=== PATIENT | female | born 1940 | race Caucasian/White ===

== ENCOUNTER 2018-12-23 00:09 | Day surgery (SDC) | payer MEDICARE, BC ==
[~2018-12-23 00:09] MED LIST: CEPH500 PO; SACC250C PO
[2018-12-23] MEDS ORDERED: TUMERIC PO (14:30)
[2018-12-23] MEDS ORDERED: Hair, Skin & N1 EACH PO (14:30)
[2018-12-23] MEDS ORDERED: OMEG1CAP30 PO (14:31)
[2018-12-23] MEDS ORDERED: LIDO700A20 TOP (14:31)
[2018-12-23] MEDS ORDERED: Advil Pm Liqui1 EACH PO (14:32)
[2018-12-23] MEDS ORDERED: LORA.5 PO (14:33)
== END 2018-12-23 15:29 | disposition home or self-care (01) ==
LOC: ATC 00:09
DX: D50.8 Other iron deficiency anemias (principal); Z87.891 Personal history of nicotine dependence
CPT/HCPCS: 36415; 36430; 86850; 86900; 86901; 86923; J7050; P9016

== ENCOUNTER → 2021-02-20 | Outpatient (CLI) | payer MEDICARE, BC ==
[~2021-02-20] MED LIST changes: +Advil Pm Liqui1 EACH PO; +Hair, Skin & N1 EACH PO; +LIDO700A20 TOP; +LORA.5 PO; +OMEG1CAP30 PO; +TUMERIC PO
[2021-02-20 19:10] LABS: Hematocrit 37.1 % (33.0-51.0); Hemoglobin 11.1 g/dL (11.5-16.0); Mean Corpuscular HGB 30.2 pg (26.0-34.0); Mean Corpuscular HGB Conc 29.9 g/dL (31.5-36.5); Mean Corpuscular Volume 101 fL (80-100); NRBC ABSOLUTE 0.03 K/mm3 (0.00-0.02); NRBC Auto 0.4 /100 WBC (0.0-0.2); Platelet Count 297 K/mm3 (150-400); RDW Coefficient Variation 18.6 % (11.7-14.2); RDW Standard Deviation 68.3 fL (35.1-46.3); Red Blood Cell Count 3.68 M/mm3 (3.80-5.20); White Blood Cell Count 7.71 K/mm3 (4.00-11.30)
[2021-02-20 19:50] LABS: BAND PERCENT MAN 4 % (0-8); BASOPHILS ABSOLUTE MAN 0.15 K/mm3 (0.00-0.23); BASOPHILS PERCENT MAN 2 % (0-2); EOSINOPHILS ABSOLUTE MAN 0.38 K/mm3 (0.00-0.68); EOSINOPHILS PERCENT MAN 5 % (0-6); LYMPHOCYTES ABSOLUTE MAN 2.08 K/mm3 (0.84-5.20); LYMPHOCYTES PERCENT MAN 27 % (21-46); MONOCYTES ABSOLUTE MAN 0.15 K/mm3 (0.16-1.47); MONOCYTES PERCENT MAN 2 % (4-13); NEUTROPHILS ABSOLUTE MAN 4.93 K/mm3 (1.96-9.15); SEG NEUTROPHILS PERCENT MAN 60 % (41-73); TOTAL CELLS COUNTED 100
[2021-02-20 20:13] LABS: Alanine Aminotransfer (ALT/SGP 36 U/L (12-78); Albumin, Blood 3.2 g/dL (3.4-5.0); Alk Phos 110 U/L (50-136); Anion Gap 5 mmol/L (6-16); Aspartate Aminotrans (AST/SGOT 36 U/L (12-37); Bilirubin, Total 0.8 mg/dL (0.1-1.0); Blood Urea Nitrogen 17 mg/dL (8-24); Bun/Creatinine Ratio 21.2 (12.0-20.0); CO2, Blood 28 mmol/L (21-32); Calcium, Blood 8.7 mg/dL (8.5-10.1); Chloride, Blood 109 mmol/L (98-108); Globulin, Blood 3.1 g/dL (2.2-4.0); Glomerular Filtration Rate >60 (60-); Glucose, Blood 81 mg/dL (70-99); Phosphorus, Blood 3.6 mg/dL (2.5-4.9); Potassium, Blood 4.4 mmol/L (3.5-5.5); Sodium, Blood 142 mmol/L (136-145); Total Protein, Blood 6.3 g/dL (6.4-8.2)
== END | disposition home or self-care (01) ==
LOC: LAB SHORT 14:10 → LAB 14:10
PROVIDERS: Internal Medicine Hematology & Oncology
DX: D46.9 Myelodysplastic syndrome, unspecified (principal); D63.8 Anemia in other chronic diseases classified elsewhere
CPT/HCPCS: 80053; 84100; 85025

== ENCOUNTER 2022-12-27 09:36 | Inpatient (IN) | payer MEDICARE, BC ==
[~2022-12-27] VITALS: Ht 165.1 cm; Wt 82.9 kg
[2022-12-27 10:19] LABS: Hematocrit 30.4 % (33.0-51.0); Hemoglobin 9.5 g/dL (11.5-16.0); Mean Corpuscular HGB 30.3 pg (26.0-34.0); Mean Corpuscular HGB Conc 31.3 g/dL (31.5-36.5); Mean Corpuscular Volume 97 fL (80-100); Mean Platelet Volume 10.2 fL (9.1-12.4); NRBC ABSOLUTE 0.17 K/mm3 (0.00-0.02); NRBC Auto 1.1 /100 WBC (0.0-0.2); Platelet Count 340 K/mm3 (150-400); RDW Coefficient Variation 20.4 % (11.7-14.2); Red Blood Cell Count 3.14 M/mm3 (3.80-5.20)
[2022-12-27 10:32] LABS: Base Excess Venous -3.7 mmol/L; Bicarbonate Venous 21.7 mmol/L (24.0-30.0); PCO2 Venous 36.2 mmHg (38-42); pH Blood Venous 7.38 (7.34-7.37)
[2022-12-27 10:38] LABS: BAND PERCENT MAN 5 % (0-8); BASOPHILS PERCENT MAN 0 % (0-2); EOSINOPHILS PERCENT MAN 2 % (0-6); LYMPHOCYTES % ATYPICAL MANUAL 1 % (0-0); LYMPHOCYTES PERCENT MAN 12 % (21-46); METAMYELOCYTE ABSOLUTE MAN 0.15 K/mm3 (0.00-0.00); METAMYELOCYTE PERCENT MAN 1 % (0-0); MONOCYTES PERCENT MAN 2 % (4-13); NEUTROPHILS ABSOLUTE MAN 12.62 K/mm3 (1.96-9.15); SEG NEUTROPHILS PERCENT MAN 77 % (41-73); TOTAL CELLS COUNTED 100
[2022-12-27 10:43] LABS: Albumin, Blood 2.9 g/dL (3.4-5.0); Albumin/Globulin Ratio 0.9 (0.8-1.8); Bilirubin, Total 0.6 mg/dL (0.1-1.0); Bun/Creatinine Ratio 42.7 (12.0-20.0); Calcium, Blood 8.4 mg/dL (8.5-10.1); Creatinine, Blood 0.75 mg/dL (0.40-1.00); Globulin, Blood 3.2 g/dL (2.2-4.0); Potassium, Blood 3.1 mmol/L (3.5-5.5); Thyroid Stimulating Hormone 1.75 uIU/mL (0.360-4.800); Total Protein, Blood 6.1 g/dL (6.4-8.2)
[2022-12-27 10:52] LABS: Source, Urine Clean Catch
[2022-12-27 10:56] LABS: Bilirubin, Urine Neg (Neg); Blood, Urine Neg (Neg); Glucose Qualitative, Urine Neg (Neg); Ketones, Urine Neg (Neg); Leukocyte Esterase, Urine 3+ (Neg); Nitrite, Urine Pos (Neg); Protein, Urine 2+ (Neg); Specific Gravity, Urine 1.025 (1.003-1.022); Urobilinogen, Urine NORM (Normal)
[2022-12-27 11:09] LABS: Influenza A, PCR NEGATIVE (NEGATIVE); Influenza B, PCR NEGATIVE (NEGATIVE); Resp Syncytial Virus, PCR NEGATIVE (NEGATIVE)
[2022-12-27 11:12] LABS: Appearance, Urine Hazy (Clear); Color, Urine Yellow (P-Yellow)
[2022-12-27 11:14] LABS: Bacteria Many /hpf; Red Blood Cells, Urine 0-2 /hpf (0-2); Squamous Epithelial Cells Mod /hpf (Few)
[2022-12-27 11:59] LABS: SARS-Cov-2 (COVID-19) PCR, MMC POSITIVE (NEGATIVE)
[2022-12-27 16:19] VITALS: BP 151/73
--- NOTE | 2022-12-27 19:32 | NUR ---
SHIFT SUMMARY: NO ACUTE EVENTS SINCE ADMISSION AT 1500. NO EVENTS ON TELEMETRY, AFIB 85; PT STATES THAT AFIB IS NEW FOR HER. ON O2 @ 2 L/MIN NC WITH CONT OXIMETRY, O2 SATS 94-96% BUT DESATS TO MID 80'S WITH ACTIVITY AND IS BAUM. GETTING UP BR WITH ASSISTANCE D/T LINES, CORDS. POTASSIUM REPLACED. DENIES N/V, HAS IBS BUT NO DIARRHEA TODAY. WANTS TO GO HOME BRANDEN BECAUSE SHE HAS PETS AT HOME.
[2022-12-27] MEDS ORDERED: FERROUS GLUCON324 M2 PO (19:47)
[2022-12-27] MEDS ORDERED: IBUP400 PO (19:48)
[2022-12-27 22:19] VITALS: BP 146/87
[2022-12-28 03:59] VITALS: BP 146/80
[2022-12-28 05:16] LABS: Hematocrit 27.8 % (33.0-51.0); Hemoglobin 8.4 g/dL (11.5-16.0); Mean Corpuscular HGB 29.5 pg (26.0-34.0); Mean Corpuscular HGB Conc 30.2 g/dL (31.5-36.5); Mean Corpuscular Volume 98 fL (80-100); NRBC ABSOLUTE 0.05 K/mm3 (0.00-0.02); NRBC Auto 0.4 /100 WBC (0.0-0.2); Platelet Count 281 K/mm3 (150-400); RDW Coefficient Variation 20.5 % (11.7-14.2); RDW Standard Deviation 72.5 fL (35.1-46.3); Red Blood Cell Count 2.85 M/mm3 (3.80-5.20); White Blood Cell Count 12.37 K/mm3 (4.00-11.30)
[2022-12-28 05:37] LABS: Bun/Creatinine Ratio 37.1 (12.0-20.0); Calcium, Blood 8.2 mg/dL (8.5-10.1); Creatinine, Blood 0.84 mg/dL (0.40-1.00); Potassium, Blood 3.9 mmol/L (3.5-5.5)
[2022-12-28 06:03] LABS: BAND PERCENT MAN 4 % (0-8); BASOPHILS ABSOLUTE MAN 0.24 K/mm3 (0.00-0.23); BASOPHILS PERCENT MAN 2 % (0-2); EOSINOPHILS ABSOLUTE MAN 0.12 K/mm3 (0.00-0.68); EOSINOPHILS PERCENT MAN 1 % (0-6); LYMPHOCYTES ABSOLUTE MAN 1.48 K/mm3 (0.84-5.20); LYMPHOCYTES PERCENT MAN 12 % (21-46); MONOCYTES ABSOLUTE MAN 0.61 K/mm3 (0.16-1.47); MONOCYTES PERCENT MAN 5 % (4-13); NEUTROPHILS ABSOLUTE MAN 9.89 K/mm3 (1.96-9.15); SEG NEUTROPHILS PERCENT MAN 76 % (41-73); TOTAL CELLS COUNTED 100
[2022-12-28 07:46] VITALS: BP 157/63
--- NOTE | 2022-12-28 11:09 | NUR ---
RN NOTE JANES EXPLOSIVE EXPERT HAS CONTACTED TROUBLE LOCATER TO SEE IF ECHO CAN BE DONE TODAY.
[2022-12-28 16:57] VITALS: BP 144/71
--- NOTE | 2022-12-28 17:27 | NUR ---
SHIFT NOTE MS JAMES IS OX4. SHE HAS BEEN FORGETFUL OF SOME INFORMATION GIVEN TO HER THROUGHOUT THE SHIFT AND REPETATIVE IN SOME OF HER QUESTIONS. AFIB ON TELEMETRY, TELEMETRY DISCONTINUED THIS AM. ECHO REQUESTED BUT HAS NOT BEEN DONE YET TODAY. ON CONTINUOUS PULSE OXIMETER AND PER RT REPORT SAT DROPPED TO 75% WHEN PT WAS UP TO THE BATHROOM, MOSTLY IN THE 90S ON 1L N/C. HR IN THE 70S NOW, UP TO [address] EPPS INFORMED. IBUPROFEN GIVEN X 1 DOSE THIS SHIFT. BED LOW, CALL LIGHT IN REACH. PT EDUCATED ON FALL PRECAUTIONS AND ON USING CALL LIGHT AND HAVING STAFF AT BEDSIDE WHEN GETTING UP TO THE BEDSIDE COMMODE. PT VERBALISED UNDERSTADNING OF EDUCATION.
[2022-12-28 20:20] VITALS: BP 142/90
--- NOTE | 2022-12-28 21:15 | NUR ---
PT ASKED FOR IV TO BE REMOVED, THIS NURSE EXPLASINED IMPORTANCE OF IV WHILE HOSPITAL STAY, SHE DECLINED A NEW ONE TO BE PLACED, CONTINMUE POC
[2022-12-29 04:31] VITALS: BP 140/88
[2022-12-29 05:10] LABS: BASOPHILS ABSOLUTE AUTO 0.25 K/mm3 (0.00-0.23); BASOPHILS PERCENT AUTO 2 % (0-2); EOSINOPHILS PERCENT AUTO 2 % (0-6); Hematocrit 28.1 % (33.0-51.0); Hemoglobin 8.5 g/dL (11.5-16.0); IMMATURE GRAN PERCENT AUTO 5 % (0-1); LYMPHOCYTES ABSOLUTE AUTO 1.78 K/mm3 (0.84-5.20); LYMPHOCYTES PERCENT AUTO 15 % (21-46); MONOCYTES ABSOLUTE AUTO 0.65 K/mm3 (0.16-1.47); MONOCYTES PERCENT AUTO 5 % (4-13); Mean Corpuscular HGB 29.2 pg (26.0-34.0); Mean Corpuscular HGB Conc 30.2 g/dL (31.5-36.5); Mean Corpuscular Volume 97 fL (80-100); Mean Platelet Volume 10.6 fL (9.1-12.4); NEUTROPHILS ABSOLUTE AUTO 8.58 K/mm3 (1.96-9.15); NEUTROPHILS PERCENT AUTO 71 % (41-73); NRBC ABSOLUTE 0.07 K/mm3 (0.00-0.02); NRBC Auto 0.6 /100 WBC (0.0-0.2); Platelet Count 269 K/mm3 (150-400); RDW Coefficient Variation 20.7 % (11.7-14.2); RDW Standard Deviation 72.4 fL (35.1-46.3); Red Blood Cell Count 2.91 M/mm3 (3.80-5.20); White Blood Cell Count 12.06 K/mm3 (4.00-11.30)
[2022-12-29 05:35] LABS: Albumin, Blood 2.6 g/dL (3.4-5.0); Anion Gap 6 mmol/L (6-16); Blood Urea Nitrogen 29 mg/dL (8-24); Bun/Creatinine Ratio 37.2 (12.0-20.0); CO2, Blood 22 mmol/L (21-32); Chloride, Blood 116 mmol/L (98-108); Creatinine, Blood 0.78 mg/dL (0.40-1.00); Glomerular Filtration Rate 76 (60-); Glucose, Blood 86 mg/dL (70-99); Phosphorus, Blood 3.5 mg/dL (2.5-4.9); Potassium, Blood 3.9 mmol/L (3.5-5.5); Sodium, Blood 144 mmol/L (136-145)
[2022-12-29 08:03] VITALS: BP 159/98
[2022-12-29 16:55] VITALS: BP 140/69
--- NOTE | 2022-12-29 19:23 | NUR ---
SHIFT SUMMARY; PATIENT REMAINS IN COVID PRECAUTIONS. DR.KHAN MORALES'S NO IV NEEDED PATIENT REFUSES NEW IV. SHE WILL NEED A HOME O2 EVAL PRIOR TO DC.
[2022-12-29 20:49] VITALS: BP 140/67
[2022-12-30 04:42] VITALS: BP 149/75
[2022-12-30 05:45] LABS: Bun/Creatinine Ratio 43.8 (12.0-20.0); Calcium, Blood 8.4 mg/dL (8.5-10.1); Creatinine, Blood 0.69 mg/dL (0.40-1.00); Potassium, Blood 3.9 mmol/L (3.5-5.5)
[2022-12-30 09:24] VITALS: BP 138/78
[2022-12-30 11:25] VITALS: BP 134/78
[2022-12-30] MEDS ORDERED: AMOCLA875 PO (11:50)
[2022-12-30] MEDS ORDERED: FURO40 PO (11:51)
[2022-12-30] MEDS ORDERED: ELIQUIS5 M2 PO (11:51)
[2022-12-30] MEDS ORDERED: EUTHYROX50 MCG PO (11:51)
[2022-12-30] MEDS ORDERED: LISI5 PO (11:52)
[2022-12-30] MEDS ORDERED: VISBIOME 112.51 EACH PO (11:52)
[2022-12-30] MEDS ORDERED: METO25ER PO (11:53)
[2022-12-30] MEDS ORDERED: POTA10T PO (11:54)
== END 2022-12-30 12:37 | disposition home or self-care (01) | DRG 871 ==
LOC: ER 09:36 → MEDS 12:56 → ENPENDDIS 12-30 10:03 → MEDS 12-30 12:37
PROVIDERS: Emergency Medicine; Internal Medicine; ADMIT Family Medicine
PROC: 3E0333Z Introduction of Anti-inflammatory into Peripheral Vein, Percutaneous Approach (ICD-10-PCS; principal; 2022-12-27)
PROC: 8E0ZXY6 Isolation (ICD-10-PCS; 2022-12-27)
DX: A41.9 Sepsis, unspecified organism (principal); J18.9 Pneumonia, unspecified organism; J96.01 Acute respiratory failure with hypoxia; U07.1 COVID-19; I50.40 Unspecified combined systolic (congestive) and diastolic (congestive) heart failure; E03.9 Hypothyroidism, unspecified; D50.9 Iron deficiency anemia, unspecified; F41.9 Anxiety disorder, unspecified; I87.8 Other specified disorders of veins; E87.6 Hypokalemia; K21.9 Gastro-esophageal reflux disease without esophagitis; M19.90 Unspecified osteoarthritis, unspecified site; I83.90 Asymptomatic varicose veins of unspecified lower extremity; I48.0 Paroxysmal atrial fibrillation; Z88.2 Allergy status to sulfonamides; Z79.899 Other long term (current) drug therapy; Z87.19 Personal history of other diseases of the digestive system; Z79.890 Hormone replacement therapy
CPT/HCPCS: 0241U; 36415; 71045; 71046; 80048; 80053; 80069; 81001; 82803; 83605; 83880; 84145; 84443; 84484; 85025; 93005; 93010; 93306; 94664; 94761; 94762; 96374; 99285-25; A9270; J0248; J0456; J0696; J1100; J1650; J7050

== ENCOUNTER 2023-01-02 10:47 | Inpatient (IN) | payer MEDICARE, BC ==
[~2023-01-02] VITALS: Ht 167.6 cm; Wt 81.5 kg
[~2023-01-02 10:47] MED LIST changes: +AMOCLA875 PO; +ELIQUIS5 M2 PO; +EUTHYROX50 MCG PO; +FERROUS GLUCON324 M2 PO; +FURO40 PO; +IBUP400 PO; +LISI5 PO; +METO25ER PO; +POTA10T PO; +VISBIOME 112.51 EACH PO
[2023-01-02 12:13] LABS: Hematocrit 30.4 % (33.0-51.0); Hemoglobin 9.4 g/dL (11.5-16.0); Mean Corpuscular HGB 29.7 pg (26.0-34.0); Mean Corpuscular HGB Conc 30.9 g/dL (31.5-36.5); Mean Corpuscular Volume 96 fL (80-100); Mean Platelet Volume 11.9 fL (9.1-12.4); NRBC ABSOLUTE 0.43 K/mm3 (0.00-0.02); NRBC Auto 2.4 /100 WBC (0.0-0.2); Platelet Count 251 K/mm3 (150-400); RDW Coefficient Variation 20.9 % (11.7-14.2); RDW Standard Deviation 71.9 fL (35.1-46.3); Red Blood Cell Count 3.16 M/mm3 (3.80-5.20)
[2023-01-02 12:34] LABS: Albumin, Blood 2.9 g/dL (3.4-5.0); Bilirubin, Total 0.9 mg/dL (0.1-1.0); Bun/Creatinine Ratio 36.4 (12.0-20.0); Creatinine, Blood 0.74 mg/dL (0.40-1.00); Potassium, Blood 3.4 mmol/L (3.5-5.5); Total Protein, Blood 5.9 g/dL (6.4-8.2)
[2023-01-02 12:36] LABS: EOSINOPHILS PERCENT MAN 4 % (0-6)
[2023-01-02 12:54] LABS: BAND PERCENT MAN 6 % (0-8); BASOPHILS ABSOLUTE MAN 0.88 K/mm3 (0.00-0.23); BASOPHILS PERCENT MAN 5 % (0-2); LYMPHOCYTES % ATYPICAL MANUAL 2 % (0-0); LYMPHOCYTES ABSOLUTE MAN 2.47 K/mm3 (0.84-5.20); LYMPHOCYTES PERCENT MAN 12 % (21-46); MONOCYTES ABSOLUTE MAN 0.17 K/mm3 (0.16-1.47); MONOCYTES PERCENT MAN 1 % (4-13); NEUTROPHILS ABSOLUTE MAN 13.45 K/mm3 (1.96-9.15); SEG NEUTROPHILS PERCENT MAN 70 % (41-73); TOTAL CELLS COUNTED 100
[2023-01-02 15:25] VITALS: BP 127/71
--- NOTE | 2023-01-02 17:45 | NUR ---
ARRIVAL TO PCU PT ARRIVED TO PCU7 AT 1510 FROM ED. PT A&OX4, ASKING FREQUENT QUESTIONS REGARDING CARE. ABLE TO MAKE NEEDS KNOWN TO STAFF AND IS COOPERATIVE WITH CARE. PT ABLE TO STAND AND PIVOT WITH 1P SBA TO BED. PT ARRIVED ON 1.5L VIA NC, NO NOTICEABLE DYSPNEA. SPO2 >92%, PT DENIES SOB. BP STABLE. PT DENIES CP/PRESSRE. AFEBRILE ON ARRIVAL. PT UP TO BSC WITH 1P SBA. ABLE TO EAT DINNER INDEPENDENTLY. REMDESIVIR INFUSING PER EMAR. PT REFUSES LASIX THIS PM AND STATES "I WILL BE UP ALL NIGHT TO PEE SO I REFUSE UNTIL THE MORNING." CALL LIGHT WITHIN REACH, NO FURTHER NEEDS AT THIS TIME. PT EDUCATED TO CALL STAFF PRIOR TO ANY AMBULATION. BED ALARM ON. THIS RN WILL CONTINUE TO MONITOR AND REPORT TO ONCOMING NOC RN.
[2023-01-02] MEDS ORDERED: FERSU300 PO (17:53)
--- NOTE | 2023-01-02 17:55 | NUR ---
PT UPDATE PT REQUESTED A CALL BE PLACED TO [facility] REGARDING HOME DOSE OF IRON. CALL PLACED, ORDERS RECEIVED TO RESUME HOME DOSE OF IRON.
[2023-01-02] MEDS ORDERED: FERROUS GLUCON324 M2 PO (17:59)
[2023-01-02] MEDS ORDERED: Hair, Skin & N1 EACH PO (18:00)
[2023-01-02 20:23] VITALS: BP 126/75
[2023-01-03 00:27] VITALS: BP 122/61
[2023-01-03 04:07] LABS: Hematocrit 28.2 % (33.0-51.0); Hemoglobin 8.6 g/dL (11.5-16.0); Mean Corpuscular HGB 29.6 pg (26.0-34.0); Mean Corpuscular HGB Conc 30.5 g/dL (31.5-36.5); Mean Corpuscular Volume 97 fL (80-100); Mean Platelet Volume 11.8 fL (9.1-12.4); NRBC ABSOLUTE 0.04 K/mm3 (0.00-0.02); NRBC Auto 0.3 /100 WBC (0.0-0.2); Platelet Count 205 K/mm3 (150-400); RDW Coefficient Variation 20.7 % (11.7-14.2); RDW Standard Deviation 71.7 fL (35.1-46.3); Red Blood Cell Count 2.91 M/mm3 (3.80-5.20)
[2023-01-03 04:33] LABS: Bun/Creatinine Ratio 40.7 (12.0-20.0); Calcium, Blood 8.1 mg/dL (8.5-10.1); Creatinine, Blood 0.71 mg/dL (0.40-1.00); Potassium, Blood 3.9 mmol/L (3.5-5.5)
--- NOTE | 2023-01-03 05:21 | NUR ---
SHIFT SUMMARY THIS RN ASSUMED CARE OF PATIENT AT 1900. PT A&O X4. ABLE TO MAKE NEEDS KNOWN. PT ANXIOUS MOST OF THE SHIFT. AMBULATING TO BATHROOM WITH CANE WITH SBA. CALLS APPROPRIATELY. PT IS NOW ON RA WITH SPO2 >92%. AFIB ON MONITOR WITH HR 60-70'S AT REST. PT NOTED TO HAVE HR 40'S BRIEFLY WHEN SLEEPING. BP STABLE. AFEBRILE. BED IN LOWEST POSITION AND CALL LIGHT WITHIN REACH. THIS RN WILL REPORT TO ONCOMING RN.
[2023-01-03 07:54] VITALS: BP 133/80
--- NOTE | 2023-01-03 10:34 | NUR ---
1000 TRANSFER UPDATE: REPORT CALLED TO [facility] RN APPROX 2085. PT'S BELONGINGS GATHERED, POSITIONED IN WHEELCHAIR BY STAFF. MASK APPLIED TO PT PER COVID19 PRECAUTIONS. PT TRANSFERRED TO [facility] VIA WHEELCHAIR BY STAFF.
--- NOTE | 2023-01-03 16:47 | NUR ---
SHIFT SUMMARY- PT A/O, PLESANT AND COOPERATIVE. SHE IS EATING AND DRINKING WELL. SHE HAS A PUREWIC IN PLACE AND IS DRINING PER SUCTION. PT DECLINED TO WORK WITH PT AND OT. HER BED IS IN THE LOW POSITON AND CALL LIGHT IS WITHIN REACH.
--- NOTE | 2023-01-03 17:03 | NUR ---
SHIFT SUMMARY- PT IS A/O, PESANT AND COOPERATIVE. SHE IS EATING AND DRINKING WELL. SHE IS AMBULATING TO THE RESTROOM. PT IS ON ROOM AIR.SHE IS RECIEVING IV ABX AND REMDISIVER. ISOLATIONS HAS BEEN MAINTAINED THIS SHIFT. HER BED IS IN THE LOW POSITION AND CALL LIGHT IS WITIN REACH.
[2023-01-03 19:53] VITALS: BP 145/76
[2023-01-04 04:26] VITALS: BP 126/76
[2023-01-04 05:31] LABS: Bun/Creatinine Ratio 42.6 (12.0-20.0); Calcium, Blood 8.5 mg/dL (8.5-10.1); Creatinine, Blood 0.85 mg/dL (0.40-1.00); Potassium, Blood 3.5 mmol/L (3.5-5.5)
--- NOTE | 2023-01-04 07:41 | NUR ---
SHIFT SUMMARY PT IS A&O X4, ON RA, DENIES PAIN, VSS, CALLS FOR ASSISTANCE PRN, PT CAN BE EXTREMELY ANXIOUS AT TIMES, EXTENSIVE EDUCATION AND REASSURANCE PROVIDED NEEDED, PT IS COOEPERATIVE WITH CARE, BEDSIDE REPORT GIVEN TO DAY RN, CALL LIGHT IN REACH
[2023-01-04 08:07] VITALS: BP 146/97
[2023-01-04 08:11] VITALS: BP 150/79
[2023-01-04 09:30] LABS: Hematocrit 29.4 % (33.0-51.0); Hemoglobin 8.8 g/dL (11.5-16.0); Mean Corpuscular HGB 28.9 pg (26.0-34.0); Mean Corpuscular HGB Conc 29.9 g/dL (31.5-36.5); Mean Corpuscular Volume 97 fL (80-100); Mean Platelet Volume 11.4 fL (9.1-12.4); NRBC ABSOLUTE 0.16 K/mm3 (0.00-0.02); Platelet Count 219 K/mm3 (150-400); RDW Coefficient Variation 21.3 % (11.7-14.2); RDW Standard Deviation 73.9 fL (35.1-46.3); Red Blood Cell Count 3.04 M/mm3 (3.80-5.20); White Blood Cell Count 15.64 K/mm3 (4.00-11.30)
[2023-01-04 15:30] VITALS: BP 105/64
--- NOTE | 2023-01-04 17:44 | NUR ---
SUMMARY- PT AAOX4, BUT IS EXTREMELY ANXIOUS INTERMITTENTLY. PT SLEPT QUITE A BIT THIS SHIFT WELL. SBA TO THE BSC. GENERAL PAIN WELL CONTROLLED W/TYLENOL.
[2023-01-04 19:22] VITALS: BP 111/75
[2023-01-05 04:19] VITALS: BP 120/66
[2023-01-05 05:09] LABS: Calcium, Blood 8.1 mg/dL (8.5-10.1); Creatinine, Blood 0.91 mg/dL (0.40-1.00); Potassium, Blood 3.7 mmol/L (3.5-5.5)
--- NOTE | 2023-01-05 06:13 | NUR ---
BLACKING WHEEL TENDER SUMMARY: A&Ox4. PLEASANT AND COOPERATIVE WITH CARE. CALLS APPROPRIATELY AND IS ABLE TO COMMUNCIATE NEEDS EFFECTIVELY. LABS DRAWN THIS MORNING; NO CRITICAL VALUES REPORTED AT THIS TIME. APAP ADMINISTERED THIS MORNING FOR C/O GENERALIZED JOINT PAIN SHE ATTRIBUTES TO OA. TELE READING AFIB, CONTROLLED IN 60S. HYDROXYZINE ADMINISTERED AT BEDTIME FOR ANXIETY. REPORT TO ONCOMING RN.
[2023-01-05 07:57] VITALS: BP 111/67
--- NOTE | 2023-01-05 11:54 | NUR ---
RN NOTIFIED DR. BEAULIEU PT WAS REFUSING IV AZITHROMYCIN AND CEFTRIAXONE DUE TO LOOSE STOOLS. PT IS ON A PROBIOTIC.
[2023-01-05 15:24] VITALS: BP 117/67
--- NOTE | 2023-01-05 18:28 | NUR ---
SUMMARY- NO ACUTE EVENTS THIS SHIFT. MILD-MODERATE ANXIETY TODAY-IMPROVED FROM YESTERDAY. PT ON RA. INDEPENDENT IN ROOM. AAOX4.
[2023-01-05 20:05] VITALS: BP 123/68
[2023-01-06 05:16] VITALS: BP 130/58
--- NOTE | 2023-01-06 06:45 | NUR ---
SUMMARY: PT A/OX4, IS INDEPENDENT IN ROOM W/CANE AND CALLS APPROPRIATELY TO SPECIFY NEEDS. SHE REMAINS IN ENHANCED ISOLATION FOR COVID BUT IS ASYMPTOMATIC OF RESP.DISTRESS. SHE'D PREVIOUSLY HAD LOOSE STOOLS BUT DENIED ABDO DISCOMFORT OR NAUSEA THIS SHIFT. PRN ATARAX AND TYLENOL RECEIVED PER PT REQUEST FOR TOLERABLE RELIEF OF ANXIETY AND CHRONIC PAIN R/T OA. SHE REMAINS IN A.FIB ON TELE AT 60'S BPM. NO ACUTE CHANGES, VSS/AFEBRILE. POSSIBLE D/C TODAY. WCTM AND REPORT TO DAY RN.
[2023-01-06 07:56] VITALS: BP 131/61
[2023-01-06] MEDS ORDERED: Celexa20 MG PO (11:50)
[2023-01-06] MEDS ORDERED: ACET325 PO (11:50)
[2023-01-06] MEDS ORDERED: LISI5 PO (11:51)
[2023-01-06] MEDS ORDERED: FURO20 PO (11:51)
[2023-01-06] MEDS ORDERED: DECADRON6 M1 PO (11:51)
[2023-01-06] MEDS ORDERED: METO25ER PO (11:52)
[2023-01-06] MEDS ORDERED: VISBIOME 112.51 EACH PO (11:52)
--- NOTE | 2023-01-06 14:55 | NUR ---
DC AT 1435- PT LEFT IN STABLE CONDITION VIA WC BY AUTOMATIC MAINTAINER W/FRIEND PICKING HER UP. PT LEFT IN STABLE CONDITION AFTER SIGNING ALL DC PAPERWORK AND VERBALLY AGREEING TO ALL DC INSTRUCTIONS. THIS RN DISCUSSED DC PAPERWORK/INSTRUCTIONS IN DEPTH, PT HAD MULTIPLE QUESTIONS/CONCERNS DUE TO ANXIETY LEVEL. PT LEFT W/ OXYGEN TANK THAT [facility] DELIVERED.
== END 2023-01-06 14:38 | disposition home or self-care (01) | DRG 871 ==
LOC: ER 10:47 → PCU 13:33 → MEDS 13:33 → PCU 15:23 → MEDS 01-03 10:00
PROVIDERS: Emergency Medicine; ADMIT Internal Medicine
PROC: XW033E5 Introduction of Remdesivir Anti-infective into Peripheral Vein, Percutaneous Approach, New Technology Group 5 (ICD-10-PCS; principal; 2023-01-02)
PROC: 8E0ZXY6 Isolation (ICD-10-PCS; 2023-01-02)
PROC: 3E0333Z Introduction of Anti-inflammatory into Peripheral Vein, Percutaneous Approach (ICD-10-PCS; 2023-01-02)
PROC: 3E03329 Introduction of Other Anti-infective into Peripheral Vein, Percutaneous Approach (ICD-10-PCS; 2023-01-03)
DX: A41.89 Other specified sepsis (principal); J12.82 Pneumonia due to coronavirus disease 2019; J96.01 Acute respiratory failure with hypoxia; U07.1 COVID-19; E03.9 Hypothyroidism, unspecified; D50.9 Iron deficiency anemia, unspecified; F41.9 Anxiety disorder, unspecified; I48.0 Paroxysmal atrial fibrillation; Z86.19 Personal history of other infectious and parasitic diseases; E87.6 Hypokalemia; Z88.2 Allergy status to sulfonamides; Z79.890 Hormone replacement therapy; Z79.01 Long term (current) use of anticoagulants
CPT/HCPCS: 36415; 71045; 80048; 80053; 83605; 84145; 85025; 85027; 87040; 93005; 93010; 94761; 96365; 96367; 99285-25; A9270; J0248; J0456; J0696; J1100; J1940; J7050

== ENCOUNTER 2023-01-26 05:40 | Inpatient (IN) | payer MEDICARE, BC ==
[~2023-01-26] VITALS: Ht 167.6 cm; Wt 70.2 kg
[~2023-01-26 05:40] MED LIST changes: +ACET325 PO; +Celexa20 MG PO; +DECADRON6 M1 PO; +FERSU300 PO; +FURO20 PO
[2023-01-26 06:03] LABS: BASOPHILS ABSOLUTE AUTO 0.08 K/mm3 (0.00-0.23); BASOPHILS PERCENT AUTO 1 % (0-2); EOSINOPHILS ABSOLUTE AUTO 0.06 K/mm3 (0.00-0.68); EOSINOPHILS PERCENT AUTO 1 % (0-6); Hematocrit 35.9 % (33.0-51.0); IMMATURE GRAN ABSOLUTE AUTO 0.32 K/mm3 (0.00-0.10); IMMATURE GRAN PERCENT AUTO 3 % (0-1); LYMPHOCYTES ABSOLUTE AUTO 2.83 K/mm3 (0.84-5.20); LYMPHOCYTES PERCENT AUTO 26 % (21-46); MONOCYTES ABSOLUTE AUTO 0.95 K/mm3 (0.16-1.47); MONOCYTES PERCENT AUTO 9 % (4-13); Mean Corpuscular HGB Conc 30.6 g/dL (31.5-36.5); Mean Corpuscular Volume 95 fL (80-100); Mean Platelet Volume 11.2 fL (9.1-12.4); NEUTROPHILS ABSOLUTE AUTO 6.75 K/mm3 (1.96-9.15); NEUTROPHILS PERCENT AUTO 62 % (41-73); NRBC ABSOLUTE 0.07 K/mm3 (0.00-0.02); NRBC Auto 0.6 /100 WBC (0.0-0.2); Platelet Count 185 K/mm3 (150-400); RDW Coefficient Variation 19.9 % (11.7-14.2); RDW Standard Deviation 69.3 fL (35.1-46.3); Red Blood Cell Count 3.79 M/mm3 (3.80-5.20); White Blood Cell Count 10.99 K/mm3 (4.00-11.30)
[2023-01-26 06:24] LABS: Albumin/Globulin Ratio 0.8 (0.8-1.8); Bilirubin, Total 0.8 mg/dL (0.1-1.0); Bun/Creatinine Ratio 22.8 (12.0-20.0); Calcium, Blood 8.2 mg/dL (8.5-10.1); Creatinine, Blood 1.01 mg/dL (0.40-1.00); Globulin, Blood 3.7 g/dL (2.2-4.0); Potassium, Blood 4.3 mmol/L (3.5-5.5); Total Protein, Blood 6.7 g/dL (6.4-8.2)
[2023-01-26 10:44] VITALS: BP 97/48
--- NOTE | 2023-01-26 13:41 | NUR ---
NOTIFIED BY TELE MONITOR THAT PT TACHYCARDIC UP TO 180S. DR. HARRIS NOTIFIED. SEE EMAR. CHARGE NURSE VERA AT BEDSIDE TO VERIFY HR. RAPID RESPONSE CALLED. SEE EMAR. PT REMAINED IN ROOM. VITALS RETURNED TO BASELINE.
--- NOTE | 2023-01-26 15:54 | NUR ---
LATE ENTRY PT ADMIT FROM ER. ALERT AND ORIENTED X4. VERY WEAK. 1 PERSON ASSIST TO BATHROOM. PT REPORTS BEING VERY COLD. SHE ALSO STATES THAT IT HURTS TO SWALLOW
--- NOTE | 2023-01-26 16:19 | NUR ---
WENT IN TO ROUND ON PT. SHE REPORTS FEELING BETTER NOW WITH TYLENOL AND PUDDING. HR 102, 94% ON 4L NC.
--- NOTE | 2023-01-26 17:10 | NUR ---
PT UNABLE TO EAT DUE TO THROAT PAIN. TRIALED PUDDING AND BROTH. PT TOLORATED WELL. CHANGED DIET TO FULL LIQUIDS
[2023-01-26 20:07] VITALS: BP 123/58
--- NOTE | 2023-01-26 21:54 | NUR ---
TELEMETRY REPORTS AFIB UP TO 120 HR. PATIENT NOTED TO BE UP TO BR WITH EXTRUDING DEPARTMENT SUPERVISOR. ON 4L O2 NC. HR BACK DOWN TO AFIB 103-1O8 RESTING IN BED. WCTM.
--- NOTE | 2023-01-26 22:52 | NUR ---
PLATING FOREMAN REPORTS PATIENT BACK UP TO AFIB 120 HR. PATIENT REPORTS ANXIOUS. PO XANAX 0.25 MG GIVEN PER EMAR. HR BACK TO 107-114 AT THIS TIME. PATIENT RESTING IN BED ON 4L O2 NC. WCTM.
--- NOTE | 2023-01-27 04:26 | NUR ---
SHIFT SUMMARY PATIENT HR UP TO AFIB 120 WHEN UP TO BSC PER NEEDLE FELT MAKING MACHINE OPERATOR AND BACK DOWN WHEN RESTING TO AFIB 104-114. INCREASED X ONE TO HR 120 WHEN RESTING AND BACK DOWN. PRESENTLY AFIB 94. VERY ANXIOUS AND XANAX 0.25 MG GIVEN X ONE. ON 4L O2 NC. ONE ASSIST TO BSC. DENIES CHEST PAIN AND N/V. CEPACOL LOZENGER GIVEN X ONE FOR SORE THROAT. PIV REMAINS INTACT. NS INFUSING @ 100 mL/HR. ENHANCED PRECAUTIONS. CALL LIGHT IN REACH. BED IN LOWEST POSITION. WILL CONTINUE TO MONITOR UNTIL DAY SHIFT NURSE ASSUMES CARE.
[2023-01-27 04:53] LABS: Hematocrit 30.3 % (33.0-51.0); Hemoglobin 9.2 g/dL (11.5-16.0); Mean Corpuscular HGB 29.1 pg (26.0-34.0); Mean Corpuscular HGB Conc 30.4 g/dL (31.5-36.5); Mean Corpuscular Volume 96 fL (80-100); Mean Platelet Volume 10.5 fL (9.1-12.4); NRBC ABSOLUTE 0.03 K/mm3 (0.00-0.02); NRBC Auto 0.2 /100 WBC (0.0-0.2); Platelet Count 139 K/mm3 (150-400); RDW Coefficient Variation 19.8 % (11.7-14.2); RDW Standard Deviation 69.3 fL (35.1-46.3); Red Blood Cell Count 3.16 M/mm3 (3.80-5.20); White Blood Cell Count 13.61 K/mm3 (4.00-11.30)
[2023-01-27 05:00] VITALS: BP 115/57
[2023-01-27 05:14] LABS: Albumin, Blood 2.4 g/dL (3.4-5.0); Albumin/Globulin Ratio 0.7 (0.8-1.8); Bilirubin, Total 0.5 mg/dL (0.1-1.0); Bun/Creatinine Ratio 33.6 (12.0-20.0); Creatinine, Blood 0.83 mg/dL (0.40-1.00); Globulin, Blood 3.3 g/dL (2.2-4.0); Total Protein, Blood 5.7 g/dL (6.4-8.2)
[2023-01-27 05:50] LABS: BAND PERCENT MAN 20 % (0-8); BASOPHILS ABSOLUTE MAN 0.13 K/mm3 (0.00-0.23); BASOPHILS PERCENT MAN 1 % (0-2); EOSINOPHILS PERCENT MAN 0 % (0-6); LYMPHOCYTES ABSOLUTE MAN 0.54 K/mm3 (0.84-5.20); LYMPHOCYTES PERCENT MAN 4 % (21-46); METAMYELOCYTE PERCENT MAN 3 % (0-0); MONOCYTES ABSOLUTE MAN 0.27 K/mm3 (0.16-1.47); MONOCYTES PERCENT MAN 2 % (4-13); NEUTROPHILS ABSOLUTE MAN 12.24 K/mm3 (1.96-9.15); SEG NEUTROPHILS PERCENT MAN 70 % (41-73); TOTAL CELLS COUNTED 100
[2023-01-27 07:24] VITALS: BP 107/58
[2023-01-27 13:24] LABS: Adenovirus F 40/41 Not Detected (NOT DETECT); Astrovirus Not Detected (NOT DETECT); Campylobacter Sp Not Detected (NOT DETECT); Cryptosporidium Not Detected (NOT DETECT); Cyclospora Cayetanensis Not Detected (NOT DETECT); E. Coli O157 Not Detected (NOT DETECT); Entamoeba Histolytica Not Detected (NOT DETECT); Enteroaggregative E. coli-EAEC Not Detected (NOT DETECT); Enteropathogenic E. coli-EPEC Not Detected (NOT DETECT); Enterotoxigenic E. coli-ETEC Not Detected (NOT DETECT); Giardia Lamblia Not Detected (NOT DETECT); Norovirus GI/GII Not Detected (NOT DETECT); Plesiomonas Shigelloides Not Detected (NOT DETECT); Rotavirus A Not Detected (NOT DETECT); Salmonella Sp Not Detected (NOT DETECT); Sapovirus Not Detected (NOT DETECT); Shiga Toxin-prod E. coli-STEC Not Detected (NOT DETECT); Shigella/Enteroin E. coli-EIEC Not Detected (NOT DETECT); Vibrio Cholerae Not Detected (NOT DETECT); Vibrio Sp Not Detected (NOT DETECT); Yersinia Enterocolitica Not Detected (NOT DETECT)
[2023-01-27 14:26] VITALS: BP 100/40
--- NOTE | 2023-01-27 17:23 | NUR ---
SHIFT SUMMARY PT AxOx4. PLEASANT AND COOPERATIVE WITH CARE. PT WAS MEDICATED FOR ANXIETY x1 THIS SHIFT. PT REPORTS FEELING MUCH BETTER TODAY. PT HAD DIARRHEA THIS AM. STOOL SAMP SENT FOR GI PANEL, WHICH RESULTED NEGATIVE. IMODIUM ORDERED FOR DIARRHEA MANAGEMENT. PT RECEIVED IV ABX AND IV REMDESIVIR THIS SHIFT. SHE IS BREATHING WITHOUT DIFFICULTY ON 2L O2 VIA NC. LS FINE CRACKLES T/O. PT WAS ON 4L O2 AT THE START OF DAY SHIFT. PER DICE PERSON, TELE RUNNING AFIB IN THE 80'S. PT IS CURRENTLY RESTING IN BED WITH CALL LIGHT IN REACH. DENIES ANY NEEDS AT THIS TIME.
[2023-01-27 19:17] VITALS: BP 90/54
--- NOTE | 2023-01-28 03:30 | NUR ---
SHIFT SUMMARY: PT IS ALERT AND ORIENTED. PT IS CALM AND COOPERATIVE WITH CARE, INTERMITTENTLY ANXIOUS. PT IS A STANDBY ASSIST TO THE BATHROOM. PT CALLS APPROPRIATELY. PT ON 1 L O2 AT START OF SHIFT, WEANED HER DOWN TO ROOM AIR, SATS MAINTAINING > 90%. PT DENIES PAIN, NAUSEA, AND VOMITING. PT SLEPT INTERMITTETNLY THROUGHOUT THE NIGHT. NO ACUTE CHANGES OR COMPLICATIONS. WILL REPORT TO DAY NURSE.
[2023-01-28 05:48] VITALS: BP 101/64
[2023-01-28 06:10] LABS: BASOPHILS ABSOLUTE AUTO 0.04 K/mm3 (0.00-0.23); BASOPHILS PERCENT AUTO 1 % (0-2); EOSINOPHILS ABSOLUTE AUTO 0.01 K/mm3 (0.00-0.68); EOSINOPHILS PERCENT AUTO 0 % (0-6); Hematocrit 28.1 % (33.0-51.0); Hemoglobin 8.6 g/dL (11.5-16.0); IMMATURE GRAN ABSOLUTE AUTO 0.15 K/mm3 (0.00-0.10); IMMATURE GRAN PERCENT AUTO 2 % (0-1); LYMPHOCYTES ABSOLUTE AUTO 1.27 K/mm3 (0.84-5.20); LYMPHOCYTES PERCENT AUTO 15 % (21-46); MONOCYTES ABSOLUTE AUTO 0.38 K/mm3 (0.16-1.47); MONOCYTES PERCENT AUTO 5 % (4-13); Mean Corpuscular HGB 29.4 pg (26.0-34.0); Mean Corpuscular HGB Conc 30.6 g/dL (31.5-36.5); Mean Corpuscular Volume 96 fL (80-100); Mean Platelet Volume 10.6 fL (9.1-12.4); NEUTROPHILS ABSOLUTE AUTO 6.64 K/mm3 (1.96-9.15); NEUTROPHILS PERCENT AUTO 78 % (41-73); NRBC ABSOLUTE 0.03 K/mm3 (0.00-0.02); NRBC Auto 0.4 /100 WBC (0.0-0.2); Platelet Count 130 K/mm3 (150-400); RDW Coefficient Variation 20.1 % (11.7-14.2); RDW Standard Deviation 70.4 fL (35.1-46.3); Red Blood Cell Count 2.93 M/mm3 (3.80-5.20); White Blood Cell Count 8.49 K/mm3 (4.00-11.30)
[2023-01-28 06:14] LABS: Bun/Creatinine Ratio 50.5 (12.0-20.0); Calcium, Blood 8.1 mg/dL (8.5-10.1); Creatinine, Blood 1.05 mg/dL (0.40-1.00); Potassium, Blood 4.1 mmol/L (3.5-5.5)
[2023-01-28 07:12] VITALS: BP 95/55
[2023-01-28 14:45] VITALS: BP 110/65
--- NOTE | 2023-01-28 17:30 | NUR ---
SHIFT SUMMARY PT AXO, PLEASANT AND COOPERATIVE WITH CARE THOUGH ANXIOUS AND STATES SHE IS SCARED ABOUT ALL THE MEDICATIONS PRESCRIBED. PT REFUSED HER STEROID AND PROBIOTIC THIS SHIFT. EDUCATION ABOUT INDICATIONS OF MEDICATIONS INCLUDING RISKS OF NOT TAKING MEDICATIONS PRESCRIBED VIA CHARGE NURSE SIN. PT 96% ON RA, VSS. IV PATENT AND SALINE LOCKED. PT REQUESTED FOR NS TO BE DC'D. DR HARRIS AGREED. IMMODIUM GIVEN PER EMAR. PT REPORTS IMPROVEMENT IN DIARRHEA. PT ALSO CONCERNED ABOUT "MESS" IN HER BATHROOM AND UTILIZED SENIOR RESOURCE BOOKLET TO FIND A GARDEN CONSULTANT TO CLEAN PRIOR TO HER DISCHARGE HOME. BED IN LOW POSITION, CALL LIGHT WITHIN REACH.
[2023-01-28 19:33] VITALS: BP 123/62
[2023-01-29] VITALS (8 sets, daily range): BP systolic 97–120; BP diastolic 55–88
[2023-01-29 05:34] LABS: Hematocrit 30.8 % (33.0-51.0); Hemoglobin 9.2 g/dL (11.5-16.0); Mean Corpuscular HGB 28.8 pg (26.0-34.0); Mean Corpuscular HGB Conc 29.9 g/dL (31.5-36.5); Mean Corpuscular Volume 97 fL (80-100); Mean Platelet Volume 11.2 fL (9.1-12.4); NRBC ABSOLUTE 0.04 K/mm3 (0.00-0.02); NRBC Auto 0.5 /100 WBC (0.0-0.2); Platelet Count 160 K/mm3 (150-400); RDW Coefficient Variation 20.3 % (11.7-14.2); RDW Standard Deviation 70.5 fL (35.1-46.3); Red Blood Cell Count 3.19 M/mm3 (3.80-5.20); White Blood Cell Count 8.19 K/mm3 (4.00-11.30)
[2023-01-29 06:22] LABS: BAND PERCENT MAN 3 % (0-8); BASOPHILS PERCENT MAN 0 % (0-2); EOSINOPHILS PERCENT MAN 0 % (0-6); LYMPHOCYTES ABSOLUTE MAN 0.98 K/mm3 (0.84-5.20); LYMPHOCYTES PERCENT MAN 12 % (21-46); METAMYELOCYTE PERCENT MAN 5 % (0-0); MONOCYTES ABSOLUTE MAN 0.16 K/mm3 (0.16-1.47); MONOCYTES PERCENT MAN 2 % (4-13); NEUTROPHILS ABSOLUTE MAN 6.63 K/mm3 (1.96-9.15); SEG NEUTROPHILS PERCENT MAN 78 % (41-73); TOTAL CELLS COUNTED 100
--- NOTE | 2023-01-29 06:48 | NUR ---
Shift Summary Pt AOx4, independently uses FWW to get to BR. Some dyspnea/tachycardia on exertion to bathroom, HR elevates to around 115. Pt anxious about different medications and refused PM probiotics. Pt c/o of headache and back pain, medicated per EMAR. This AM pt had chills which she states has been happening to her for 20 years, and requested an antipyretic to head off a fever. Pt states chills will likely go away in a few hours. Pt did have a bad run of diahhrrea the last week but states it has been improving, especially after taking immodium yesterday.
[2023-01-29 06:54] LABS: Bun/Creatinine Ratio 57.9 (12.0-20.0); Calcium, Blood 8.6 mg/dL (8.5-10.1); Creatinine, Blood 0.97 mg/dL (0.40-1.00)
--- NOTE | 2023-01-29 08:30 | NUR ---
PT TACHYCARDIA- TELE CALLED PT HR TACHY IN THE 150'S AFIB. WENT IN TO ASSESS THE PT, SHE WAS STRUGGLING TO GET OUT OF BED. ASSISTED HER OOB AND TO THE BATHROOM. PT SPEECH WAS RAPID AND SHE SEEMED TO BE TRYING TO PREVENT STAFF FROM "FREAKING OUT" ABOUT HER VITALS. PT SBP WAS 99. TEMP 99.5 THOUGH HER SKIN FELT WARMER, RESP RATE 30 RT NOTIFIED, BREATH SOUNDS WHEEZY. NO TREATMENT AT THIS TIME D/T TACHY HR. REMOVED BLANKETS SAT PT UP IN CHAIR AFTER TOILETING. TACHY HR REDUCED TO THE 120'S ONCE PT WAS SEATED. PT SEEMED MORE ANXIOUS THAN IN PHYSICAL DISTRESS. MEDICATED WITH XANAX. PT ADIMANTLY REFUSED TO TAKE HER METOPROLOL, NOTIFIED. TRIED TO EXPLAIN THE PURPOSE OF THE MED. PT STATES SHE DOES NOT NEED IT, SHE DOES NOT "HAVE HIGH BLOOD PRESSURE." EXPLAINED THE NEED FOR RATE CONTROL. PT STILL REFUSED. NOTIFIED. VEWS SCORE WAS 6 AT THIS TIME FOR ELEVATED HR LOW BP AND HIGH RESP RATE. FOLLOW UP VITALS, HR WAS DOWN, BP WAS UP AND RESP RATE WAS DOWN, VEW SCORE OF 3 AT THAT TIME.
--- NOTE | 2023-01-29 12:16 | NUR ---
PT SATS DROPPING- SPOKE TO RT. PT O2 SATS DROPPING TO 88 ON ROOM AIR WHILE ASLEEP, RECOMENDED SOME O2, SATS BEGAN DROPPING TO 82 AND GOING BACK UP TO 89, PLACED ON 2L O2 VIA NC SATS BETWEEN 90-94 AT THIS TIME. PULSE HAS STABILIZED A FIB IN THE 90'S. CALLED RT FOR TREATMENT PT HAS AUDIBLE WHEEZES. PT STATES SHE JUST FEELS SO TIRED. TEMP 100.7 WILL MEDICATE PER EMAR FOR FEVER.
--- NOTE | 2023-01-29 12:24 | NUR ---
HIGH VEWS SCORE 5- PT RESP RATE ELEVATED AND BREATH SOUNDS WHEEZY. CALLED RT FOR TREATMENT. HR IN THE 90'S. TEMP ELEVATED AGAIN 100.7, BP STILL A BIT SOFT (SBP 107) CALLED DR EPPS. SHE IS ORDERING SOME IVF NOW. PT DRINKS WATER WHEN SHE WAKES BUT SHE HAS BEEN WEAK AND TIRED AND MAY NOT BE GETTING ADEQUATE FLUID AT THIS TIME.
[2023-01-29 14:07] LABS: Potassium, Blood 4.1 mmol/L (3.5-5.5)
--- NOTE | 2023-01-29 17:00 | NUR ---
SHIFT SUMMARY- PT HAS HAD Q2 VITALS DONE ALL SHIFT. SHE HAS BEEN TACHY WITH ELEVATED RESP RATE AND LOW BP AND FEVER. IVF STARTED AROUND 1400 AFTER REMDESIVIER FINISHED INFUSING. PT WAS VERY LETHARGIC AT THAT TIME. AT ABOUT 1600 THE PT WOKE STAFF WENT IN TO DO VITALS, O2 SATS WERE MAINTAINING 95-97% ON 2L VIA NC. ON ROOM AIR SHE WAS DROPPING LOW 82%. VSS AT 1600, BP NO LONGER LOW (SBP LESS THAN 100), HR IS NOW STILL AFIB BUT IN THE 70'S PER TELE, RESP RATE STILL ELEVATED AT 25. TEMP IN NORMAL RANGE. PT STATED SHE WANTED TO NOT HAVE IV FLUIDS. EXPLAINED TO THE PT THE REASON FOR THE IVF AND HOW MUCH BETTER HER VITALS WERE NOW THAT SHE WAS ON THEM. THE PT CONCEEDED THAT SHE "GUESS THATS ALRIGHT." PT IS CURRENTLY IN BED, ON TELE AFIB IN THE 70'S, O2 SATS MAINTAINING GREATER THAN 90% ON 2L VIA NC. NO CURRENT S&S OF DISTRESS. NS RUNNING AT 100ML/HR.
--- NOTE | 2023-01-30 04:32 | NUR ---
SHIFT SUMMARY PATIENT HAD NO ACUTE CHANGES. AXOX 4 AND SBA TO BR. ON 2L O2 NC AND STATING 98% ON CONTINUOUS PULSE OXIMETRY. PIV REMAINS INTACT. NS INFUSING @ 100 mL/HR. TELE MONITOR AFIB 76. DENIES CHEST PAIN, SOB, AND N/V. VSS/AFEBRILE. ENHANCED PRECAUTIONS. COOPERATIVE WITH CARE. CALL LIGHT IN REACH. BED IN LOWEST POSITION. WILL CONTINUE TO MONITOR UNTIL DAY SHIFT NURSE ASSUMES CARE.
[2023-01-30 04:56] VITALS: BP 116/66
[2023-01-30 08:34] VITALS: BP 107/64
[2023-01-30 15:50] VITALS: BP 112/56
--- NOTE | 2023-01-30 18:26 | NUR ---
SHIFT SUMMARY- PT HAS SHOWN GREAT IMPROVEMENT TODAY. SHE IS MORE ALERT AND INTERACTING WITH STAFF. HER BP AND HR ARE MORE NREGULATED. IVF STOPPED TODAY. PT WAS MEDICATED FOR 5/10 PAIN IN HER HIP AND HEADACHE. SHE IS ALERT AND ORIENTED AND PARTICIPATES IN HER HEALTH CARE, SHE WILL ACCEPT AND DECLINE MEDICATIONS SHE THINKS SHE NEEDS. PLAN IS FOR HER TO DISCHARGE HOME TOMORROW. PT CURRENTLY IN BED, CALL LIGHT IN REACH NO S&S OF DISTRESS NOTED.
[2023-01-30 20:15] VITALS: BP 121/59
--- NOTE | 2023-01-31 04:20 | NUR ---
SHIFT SUMMARY PATIENT TRIALED ON RA AND DESTATED DOWN TO 85% OXYGEN. PLACED BACK ON 1.5 L AND STATING 92-96% ON CONTINUOUS PULSE OXIMETRY. AXOX X 4 AND ONE ASSIST TO BR. ANXIOUS X ONE AND XANAX 0.25 MG GIVEN PER EMAR. REPORTED HIP PAIN FROM ARTHRITIS AND TYLENOL 650 MG GIVEN. VSS/AFEBRILE. DENIES CHEST PAIN AND N/V. PIV REMAINS INTACT. TELE MONITOR AFIB 76. TACHY TO 104 WHEN ANXIOUS AND PAINFUL. REPORTS SHE DOESN'T GET ENOUGH SLEEP IN HOSPITAL. COOPERATIVE WITH CARE. CALL LIGHT IN REACH. BED IN LOWEST POSITION. WILL CONTINUE TO MONITOR UNTIL DAY SHIFT NURSE ASSUMES CARE.
[2023-01-31 07:42] VITALS: BP 112/55
[2023-01-31] MEDS ORDERED: Celexa20 MG PO (15:59)
--- NOTE | 2023-01-31 16:34 | NUR ---
SHIFT/DISCHARGE SUMMARY: Pt remains A&Ox3 this shift. Denies pain. VSS. OOB with SBA/FWW. Lung sounds dimininshed. All discharge instructions reviewed with return verbal understanding. Pt with mask on to ED lobby via transport chair for taxi home.
== END 2023-01-31 16:27 | disposition home or self-care (01) | DRG 871 ==
LOC: ER 05:40 → MEDS 08:40 → ENPENDDIS 01-31 10:00 → MEDS 01-31 16:27
PROVIDERS: Emergency Medicine; ADMIT Internal Medicine
PROC: 3E0333Z Introduction of Anti-inflammatory into Peripheral Vein, Percutaneous Approach (ICD-10-PCS; principal; 2023-01-26)
PROC: XW033E5 Introduction of Remdesivir Anti-infective into Peripheral Vein, Percutaneous Approach, New Technology Group 5 (ICD-10-PCS; 2023-01-27)
DX: A41.9 Sepsis, unspecified organism (principal); J18.9 Pneumonia, unspecified organism; U07.1 COVID-19; J96.01 Acute respiratory failure with hypoxia; B37.0 Candidal stomatitis; N17.9 Acute kidney failure, unspecified; A08.39 Other viral enteritis; E03.9 Hypothyroidism, unspecified; D50.9 Iron deficiency anemia, unspecified; I87.2 Venous insufficiency (chronic) (peripheral); R74.01 Elevation of levels of liver transaminase levels; F32.A Depression, unspecified; F41.9 Anxiety disorder, unspecified; K58.9 Irritable bowel syndrome, unspecified; I48.0 Paroxysmal atrial fibrillation; Z86.19 Personal history of other infectious and parasitic diseases; Z87.01 Personal history of pneumonia (recurrent); Z79.890 Hormone replacement therapy; Z79.899 Other long term (current) drug therapy; Z88.2 Allergy status to sulfonamides
CPT/HCPCS: 36415; 71045; 71260; 80048; 80053; 83605; 83735; 84145; 84484; 85025; 87040; 87081; 87430; 87507; 93005; 93010; 94640; 94664; 94761; 94762; 96361; 96365-59; 96367-59; 96375-59; 99285-25; A9270; G0480; J0248; J0456; J0696; J1100; J7030; J7040; J7050; Q9967

== ENCOUNTER → 2024-03-03 | Outpatient (CLI) | payer MEDICARE, BC ==
[2024-03-03 20:10] LABS: Percent Saturation 32.8 % (15.0-50.0)
== END ==
LOC: LAB 14:20 → LAB SHORT 14:20
PROVIDERS: Internal Medicine Hematology & Oncology
DX: D50.9 Iron deficiency anemia, unspecified (principal)
CPT/HCPCS: 82728; 83540; 83550

== ENCOUNTER → 2024-04-20 | Outpatient (CLI) | payer MEDICARE, BC | LOC: LAB SHORT 15:26 → LAB 15:26 | DX: E61.1 Iron deficiency (principal) | CPT/HCPCS: 82607; 82746 ==

== ENCOUNTER 2025-04-11 12:01 | Inpatient (IN) | payer MEDICARE ==
[~2025-04-11] VITALS: Ht 167.6 cm; Wt 81.2 kg
[2025-04-11 13:05] LABS: Hematocrit 32.8 % (33.0-51.0); Hemoglobin 9.8 g/dL (11.5-16.0); Mean Corpuscular HGB Conc 29.9 g/dL (31.5-36.5); Mean Corpuscular Volume 100 fL (80-100); NRBC ABSOLUTE 0.08 K/mm3 (0.00-0.02); NRBC Auto 0.6 /100 WBC (0.0-0.2); Platelet Count 241 K/mm3 (150-400); RDW Coefficient Variation 22.3 % (11.7-14.2); RDW Standard Deviation 79.5 fL (35.1-46.3)
[2025-04-11] MEDS ORDERED: EUTHYROX50 MC1 PO (13:13)
[2025-04-11 13:35] LABS: BAND PERCENT MAN 1 % (0-8); BASOPHILS ABSOLUTE MAN 0.37 K/mm3 (0.00-0.23); BASOPHILS PERCENT MAN 3 % (0-2); EOSINOPHILS ABSOLUTE MAN 0.37 K/mm3 (0.00-0.68); EOSINOPHILS PERCENT MAN 3 % (0-6); LYMPHOCYTES ABSOLUTE MAN 2.48 K/mm3 (0.84-5.20); LYMPHOCYTES PERCENT MAN 20 % (21-46); MONOCYTES ABSOLUTE MAN 0.24 K/mm3 (0.16-1.47); MONOCYTES PERCENT MAN 2 % (4-13); NEUTROPHILS ABSOLUTE MAN 8.93 K/mm3 (1.96-9.15); SEG NEUTROPHILS PERCENT MAN 71 % (41-73)
[2025-04-11 14:22] LABS: Alanine Aminotransfer (ALT/SGP 26.0 U/L (12-78); Albumin, Blood 3.0 g/dL (3.4-5.0); Albumin/Globulin Ratio 0.9 (0.8-1.8); Anion Gap 15.0 mmol/L (3-11); Aspartate Aminotrans (AST/SGOT 43.0 U/L (12-37); Bilirubin, Total 0.8 mg/dL (0.1-1.0); Blood Urea Nitrogen 59.0 mg/dL (8-24); CO2, Blood 18.0 mmol/L (21-32); Calcium, Blood 8.4 mg/dL (8.5-10.1); Chloride, Blood 112.0 mmol/L (98-108); Creatinine, Blood 1.69 mg/dL (0.40-1.00); Globulin, Blood 3.4 g/dL (2.2-4.0); Glucose, Blood 93.0 mg/dL (70-99); Potassium, Blood 3.6 mmol/L (3.5-5.5); Sodium, Blood 141.0 mmol/L (136-145); Total Protein, Blood 6.4 g/dL (6.4-8.2)
[2025-04-11 15:05] LABS: pH Blood Venous 7.32 (7.34-7.37)
[2025-04-11] MEDS ORDERED: FLU VACC TS2025(65UP)/MF59C/PF 45 MCG/0.5 ML SYRINGE IM SCH (15:15)
[2025-04-11] MEDS ORDERED: Enoxaparin 30 MG/0.3 ML SYR SC SCH (17:00)
[2025-04-11 17:19] VITALS: BP 119/61
[2025-04-11 17:43] LABS: Ferritin, Serum 123.0 ng/mL (8-252); Thyroid Stimulating Hormone 11.6 uIU/mL (0.360-4.800); Total Iron Binding Capacity 281.0 ug/dL (250-450)
--- NOTE | 2025-04-11 18:04 | NUR ---
Pt arrived to 356 via gurney from ED, report was obtained, pt able to stand and tx to bed with sba, she is a/ox4, pleasant and cooperative with care, follows commands well, reports pain in her legs, lungs are clear in upper varma dim in bases, resp even and unlabored, sats are in the high 90's, on r/a, does report feeling sob at rest, hrirr, tele in place running afib per monitor, see strip, +1 edema noted to b/l le, le are discolored, no open areas, piv to rac site is clear and patent, btx4, abd flat soft nontender, voids without diff, skin c/w/d, anthony garay, oriented to room layout and call system, call light in reach.
[2025-04-11] MEDS ORDERED: HYDROcodone 5-APAP 325 TAB PO PRN (18:05)
[2025-04-11 20:27] VITALS: BP 108/59
[2025-04-12] VITALS (8 sets, daily range): BP systolic 97–1175; BP diastolic 46–75
[2025-04-12] MEDS ORDERED: FentaNYL Citrate 50 MCG/ML 2 ML Injection IV PRN (02:00)
[2025-04-12] MEDS ORDERED: HYDHCL25 PO (04:14)
--- NOTE | 2025-04-12 05:28 | NUR ---
SHIFT SUMMARY ADMIT YESTERDAY FOR DIASTOLIC HF EXAC., AND FELI. MEDICATED FOR CHRONIC PAIN PER EMAR. PLAN FOR ECHO TODAY. TELE: AFIB, 91 BPM. PLACED ON 1L NC FOR COMFORT DUE TO REPORTED SOB, AND O2 LOW 91% ON RA. HOB ELEVATED 30 DEG. MEDICATIONS RECONCILED, PT ONLY TAKING LEVOTHYROXINE, NONE OF HER DIURETICS DUE TO REPORTED DIARRHEA WITH THESE. THIS RN IS CONCERNED PT DOES NOT HAVE ADEQUATE SUPPORT AT HOME DUE TO HER LIMITED ADLs AND PT WOULD LIKELY BENEFIT FROM PT/OT AND CARE MANAGEMENT EVAL. A&OX4, SBA USING FWW TO RESTROOM, URINARY FREQUENCY/NOCTURIA WITH LASIX GIVEN YESTERDAY. PT HAVING LOW ABD CRAMPING PAINS AND NAUSEA X3 WKS. TOLERATING PO INTAKE WELL WITHOUT VOMITING/DIARRHEA. IV PATENT IN RAC.
[2025-04-12 06:26] LABS: Anion Gap 12.0 mmol/L (3-11); Blood Urea Nitrogen 63.0 mg/dL (8-24); CO2, Blood 20.0 mmol/L (21-32); Calcium, Blood 8.0 mg/dL (8.5-10.1); Chloride, Blood 113.0 mmol/L (98-108); Creatinine, Blood 1.7 mg/dL (0.40-1.00); Glucose, Blood 105.0 mg/dL (70-99); Potassium, Blood 3.5 mmol/L (3.5-5.5); Sodium, Blood 141.0 mmol/L (136-145)
[2025-04-12] MEDS ORDERED: Iron Dextran 50 MG / ML 2ML Vial IV ONE (08:00)
[2025-04-12] MEDS ORDERED: Enoxaparin 30 MG/0.3 ML SYR SC SCH (09:00)
[2025-04-12] MEDS ORDERED: Iron Dextran 975 MG in NS 250 ML IV ONE (10:00)
[2025-04-12] MEDS ORDERED: SPIRONOLACTONE25 MG PO (14:06)
[2025-04-12] MEDS ORDERED: METO5 PO (14:08)
--- NOTE | 2025-04-12 16:26 | NUR ---
PT HAS BEED AOX4 AND COOPERATIVE OF ALL CARE. PT IS VERY ANXIOUS AND VERBALIZES ALL CONCERNS. PT IS A ONE PERSON TO RESTROOM WITH WALKER AND GAITBELT. PT DID SIT UP IN CHAIR FOR A TIME THEN REQUESTED BACK IN BED. AIR WAFFLE WAS ADDED TO BED FOR COMFORT. PT RESTING QUIETLY WILL CONTINUE TO MONITOR.
[2025-04-13 00:13] VITALS: BP 98/57
[2025-04-13 04:55] VITALS: BP 113/66
[2025-04-13 05:11] LABS: Anion Gap 10.0 mmol/L (3-11); Blood Urea Nitrogen 58.0 mg/dL (8-24); CO2, Blood 20.0 mmol/L (21-32); Calcium, Blood 7.7 mg/dL (8.5-10.1); Chloride, Blood 113.0 mmol/L (98-108); Creatinine, Blood 1.51 mg/dL (0.40-1.00); Glucose, Blood 99.0 mg/dL (70-99); Potassium, Blood 3.0 mmol/L (3.5-5.5); Sodium, Blood 140.0 mmol/L (136-145)
--- NOTE | 2025-04-13 05:38 | NUR ---
BREAD WRAPPING MACHINE FEEDER SUMMARY PT A&OX4, VSS. ABLE TO COMMUNICATE NEEDS APPROPRIATELY. PT HAS BEEN ASLEEP ON AND OFF THIS SHIFT. CHEST RISE/RESPIRATIONS NOTED. UP INTERMITTENTLY W/ SBA W/ FWW TO USE RESTROOM. REMAINS ON TELE. A FIB AT 85. REFUSED PAIN MEDS AND NAUSEA MEDS THIS SHIFT. PT STATES S/SX MANAGABLE AND WANTS TO HOLD OFF AT THIS TIME. BED RAILS UP X 2, BED IN LOWEST POSITION, BED WHEELS LOCKED, PERSONAL BELONGINGS AND CALL LIGHT WITHIN REACH FOR SAFETY.
[2025-04-13] MEDS ORDERED: Potassium Chl 20MEQ/Water100ML 100 ML IV ONE (06:45)
[2025-04-13 07:43] VITALS: BP 101/60
[2025-04-13 08:07] LABS: Campylobacter Sp Not Detected (NOT DETECT); E. Coli O157 Not Detected (NOT DETECT); Enteroaggregative E. coli-EAEC Not Detected (NOT DETECT); Enteropathogenic E. coli-EPEC Not Detected (NOT DETECT); Enterotoxigenic E. coli-ETEC Not Detected (NOT DETECT); Salmonella Sp Not Detected (NOT DETECT); Shiga Toxin-prod E. coli-STEC Not Detected (NOT DETECT); Shigella/Enteroin E. coli-EIEC Not Detected (NOT DETECT); Vibrio Sp Not Detected (NOT DETECT)
[2025-04-13] MEDS ORDERED: NS 250 ML IV PRN (08:50)
[2025-04-13 12:01] VITALS: BP 117/61
[2025-04-13 16:23] VITALS: BP 101/55
[2025-04-13 19:33] VITALS: BP 111/66
--- NOTE | 2025-04-13 19:40 | NUR ---
PT ALERT AND ORIENTED X4, C/O CHRONIC GENERALIZED PAIN. LASIX IVP TO CONTINUE DIURESIS. PT AMBULATING TO RESTROOM WITH FWW, DENIES SOB BUT DOES SHOW SOB WITH EXCERTION AND WHEN INCREASED ACTIVITY. CALL LIGHT AND BEDSIDE TABLE IN REACH.
[2025-04-14 00:37] VITALS: BP 93/55
[2025-04-14 04:33] VITALS: BP 96/58
--- NOTE | 2025-04-14 04:54 | NUR ---
NO ACUTE CHANGES DURING SHIFT. PATIENT ALERT AND ORIENTED X4, ABLE TO MAKE NEEDS KNOWN. PATIENT ABLE TO TURN SELF. PATIENT UP TO THE BATHROOM WITH ONE ASSIST AND WALKER. STRICT I&O'S. NORCO GIVEN FOR PAIN. PATIENT ON ROOM AIR. BED IN LOW POSITION WITH WHEELS LOCKED. CALL LIGHT WITHIN REACH
[2025-04-14 05:36] LABS: Anion Gap 12.0 mmol/L (3-11); Blood Urea Nitrogen 55.0 mg/dL (8-24); CO2, Blood 20.0 mmol/L (21-32); Calcium, Blood 7.7 mg/dL (8.5-10.1); Chloride, Blood 113.0 mmol/L (98-108); Creatinine, Blood 1.58 mg/dL (0.40-1.00); Glucose, Blood 89.0 mg/dL (70-99); Magnesium, Blood 1.8 mg/dL (1.6-2.4); Potassium, Blood 3.4 mmol/L (3.5-5.5); Sodium, Blood 142.0 mmol/L (136-145)
[2025-04-14 07:42] VITALS: BP 101/58
[2025-04-14] MEDS ORDERED: Torsemide 20 MG TAB PO SCH (09:00)
[2025-04-14 15:35] LABS: EOS, Urine 0.0 % (0.0-1.0); Eosinophils-Raw #,Urine 0
[2025-04-14 16:46] VITALS: BP 124/65
--- NOTE | 2025-04-14 19:13 | NUR ---
SHIFT SUMMARY PT IS A/OX4. SBA WITH FWW TO BATHROOM. NO ACUTE EVENTS THROUGHOUT THIS SHIFT. ON TELE RUNNING AFIB IN THE 80'S. PT IS COOPERATIVE WITH CARE AND CALLS APPROPRIATELY USING THE CALL LIGHT.
[2025-04-14 19:47] VITALS: BP 118/65
[2025-04-15 00:14] VITALS: BP 118/62
[2025-04-15 03:31] VITALS: BP 112/62
[2025-04-15 05:43] LABS: Anion Gap 12.0 mmol/L (3-11); Blood Urea Nitrogen 53.0 mg/dL (8-24); CO2, Blood 20.0 mmol/L (21-32); Calcium, Blood 7.9 mg/dL (8.5-10.1); Chloride, Blood 114.0 mmol/L (98-108); Creatinine, Blood 1.39 mg/dL (0.40-1.00); Glucose, Blood 106.0 mg/dL (70-99); Potassium, Blood 3.3 mmol/L (3.5-5.5); Sodium, Blood 143.0 mmol/L (136-145)
--- NOTE | 2025-04-15 07:38 | NUR ---
A/Ox4, VSS ON RA. PT REPORTS FATIGUE; "FRUSTRATED" BY NOT BEING ABLE TO REST EFFECTIVELY, CLUSTERED CARE POSSIBLE. NORCO EFFECTIVE FOR HEADACHE AND PRN HYDROXYZINE GIVEN FOR ANXIETY. UP TO RESTROOM WITH SBA/FWW. NO ACUTE CHANGES OVERNIGHT. SAFETY PRECAUTIONS IN PLACE, CALL LIGHT IN REACH.
[2025-04-15 07:41] VITALS: BP 106/57
[2025-04-15] MEDS ORDERED: Norco 5-325 Ta1 EACH PO (08:52)
[2025-04-15] MEDS ORDERED: TORSE20 PO (08:54)
[2025-04-15] MEDS ORDERED: K-Dur20 MEQ PO (08:54)
[2025-04-15] MEDS ORDERED: JARDIANCE10 MG PO (08:55)
[2025-04-15] MEDS ORDERED: LEVSOD75 PO (10:27)
--- NOTE | 2025-04-15 11:50 | NUR ---
PT DISCHARGED TO HOME. DISCHARGE INSTRUCTIONS PROVIDED AND EDUCATED ON AT TIME OF DISCHARGE. ALL VALUABLES RETURNED AND SENT HOME WITH THE PT.
--- NOTE | 2025-04-15 12:04 | NUR ---
1145 discharged per cab with belongings and home walker
== END 2025-04-15 11:54 | disposition home health service (06) | DRG 291 ==
LOC: ER 12:01 → MEDS 12:02 → ENPENDDIS 04-15 08:54 → MEDS 04-15 11:54
PROVIDERS: Emergency Medicine; Physician Assistant; ADMIT Internal Medicine
DX: I50.33 Acute on chronic diastolic (congestive) heart failure (principal); J96.01 Acute respiratory failure with hypoxia; N17.0 Acute kidney failure with tubular necrosis; E87.20 Acidosis, unspecified; K52.1 Toxic gastroenteritis and colitis; E03.9 Hypothyroidism, unspecified; F41.9 Anxiety disorder, unspecified; I48.0 Paroxysmal atrial fibrillation; D50.9 Iron deficiency anemia, unspecified; I27.20 Pulmonary hypertension, unspecified; E87.6 Hypokalemia; I36.1 Nonrheumatic tricuspid (valve) insufficiency; T36.95XA Adverse effect of unspecified systemic antibiotic, initial encounter; G89.29 Other chronic pain; M54.9 Dorsalgia, unspecified; Z79.01 Long term (current) use of anticoagulants; Z88.2 Allergy status to sulfonamides; Z87.891 Personal history of nicotine dependence
CPT/HCPCS: 36415; 71046; 80048; 80053; 82570; 82728; 82803; 83540; 83550; 83735; 83880; 84300; 84443; 84484; 85025; 87205; 87507; 93005; 93010; 93306; 96365; 96366; 96375; 96376; 97110; 97116; 97162; 97165; 97530; 99285-25; A9270; G0378; J1650; J1750; J1938; J3010; J3480; J7050